=== PATIENT | female | born 1965 | race Caucasian/White ===

== ENCOUNTER 2016-04-13 13:59 | Outpatient (CLI) ==
[2013-09-01 10:28] VITALS: BMI 27.9
--- NOTE | 2016-04-13 15:35 | DI ---
EXAM: Left foot three views HISTORY: Pain COMPARISON: 12/11/2009 FINDINGS: No fracture or dislocation. Mild osteoarthritis of the midfoot. Small plantar and poste rior calcaneal spurs. IMPERSSION: 1. No fracture or dislocation. 2. Small calcaneal spurs. 3. Mild osteoarthritis midfoot.
== END 2016-04-13 14:00 | disposition home or self-care (01) ==
LOC: RAD 13:59
PROVIDERS: ATTEND Physician Assistant
DX: M79.672 Pain in left foot (principal)

== ENCOUNTER 2017-06-20 17:21 | Emergency (ER) ==
[2017-06-20 17:26] VITALS: BP 148/83; TEMP 98.8; BMI 29.1
--- NOTE | 2017-06-20 18:14 | ED.PDOC ---
General ED Provider: Dr. MARY BETH WINKLER Chief Complaint: Hand Pain/Injury Stated Complaint: hand and wrist pain right side Time Seen by Physician: 17:22 Mode of Arrival: Walk-In Information Source: Patient Exam Limitations: No limitations Primary Care Provider: ALINA HANNON Nursing and Triage Documentation Reviewed and Agree: Yes Reviewed sepsis parameters & appropriate labs ordered?: Yes (blunt force trauma today hand /wrist) System Inflammatory Response Syndrome: Not Applicable Sepsis Protocol: For patient's 13 years and over: Temp is 96.8 and below OR 101 and greater Pulse >90 BPM Resp >20/minute Acutely Altered Mental Status Are patient's symptoms suggestive of a new infection, such as: -Pneumonia -Skin, Soft Tissue -Endocarditis -UTI -Bone, Joint Infection -Implantable Device -Acute Abdominal Infection -Wound Infection -Meningitis -Blood Stream Catheter Infection -Unknown System Inflammatory Response Syndrome: Not Applicable Musculoskeletal Complaint Exam - Hand/Wrist Complaint/Exam Location of Pain: Reports: Right, Hand, Wrist Mechanism of Injury: Reports: Trauma Onset/Duration: today Symptoms Are: Still present Onset of Pain: Reports: Hours Initial Severity: Moderate Current Severity: Moderate Location: Reports: Discrete (right hand ) Character: Reports: Aching Alleviating: Reports: Rest, Elevation Aggravating: Reports: Movement Associated Signs and Symptoms: Denies: Swelling, Redness, Bruising, Fever, Weakness, Numbness, Tingling Related History: Reports: Similar episode Related Surgical History: Reports: None Hand/Wrist Findings: Absent: Ecchymosis, Abnormal contour, Rotation, Ligamentous instability, Phalen's Sign, Nail avulsion, Subungal hematoma Compartment Syndrome Risk Factors: Present: Pain Differential Diagnoses: Closed Fracture, Sprain, Strain Review of Systems - Review Of Systems Constitutional: Reports: No symptoms Eyes: Reports: No symptoms Ears, Nose, Mouth, Throat: Reports: No symptoms Respiratory: Reports: No symptoms Cardiac: Reports: No symptoms GI: Reports: No symptoms : Reports: No symptoms Musculoskeletal: Reports: Joint pain (hamd wrist pain) Skin: Reports: No symptoms Neurological: Reports: No symptoms Endocrine: Reports: No symptoms Hematologic/Lymphatic: Reports: No symptoms All Other Systems: Reviewed and Negative Past Medical History - Past Medical History Previously Healthy: Yes Endocrine: Reports: None Cardiovascular: Reports: None Respiratory: Reports: None Hematological: Reports: None Gastrointestinal: Reports: None Genitourinary: Reports: None Neuro/Psych: Reports: None Musculoskeletal: Reports: None Cancer: Reports: None Last Menstrual Period: none - Surgical History General Surgical History: Reports: None - Family History Family History: Reports: None - Social History Smoking Status: Current every day smoker Hx Substance Use: No Alcohol Screening: None Physical Exam - Physical Exam Appearance: Well-appearing, No pain distress, Well-nourished Eyes: QUENTIN, EOMI, Conjunctiva clear ENT: Ears normal, Nose normal, Oropharynx normal Respiratory: Airway patent, Breath sounds clear, Breath sounds equal, Respirations nonlabored Cardiovascular: RRR, Pulses normal, No rub, No murmur GI/: Soft, Nontender, No masses, Bowel sounds normal, No Organomegaly Musculoskeletal: Normal strength, ROM intact, No edema, No calf tenderness Skin: Warm, Dry, Normal color Neurological: Sensation intact, Motor intact, Reflexes intact, Cranial nerves intact, Alert, Oriented Psychiatric: Affect appropriate, Mood appropriate Interpretation - Radiology Interpretation Radiology Interpretation By: ED Physician Radiology Results: Negative Critical Care Note - Critical Care Note Total Time (mins): 0 Course - Course Orders, Labs, Meds: Orders Category Date Time Status HAND, RIGHT 3 VIEWS Stat RADS 06/20/17 17:32 Ordered WRIST, RIGHT 3 VIEWS Stat RADS 06/20/17 17:32 Ordered Vital Signs: Temp Pulse Resp BP Pulse Ox 06/20/17 17:21 98.8 F 78 18 148/83 H 97 Departure - Departure Time of Disposition: 18:13 Disposition: HOME SELF-CARE Discharge Problem: Injury of hand, Hand pain, Wrist pain, right Instructions: Hand Sprain (ED) Condition: Good Pt referred to PMD for follow-up: Yes IPMP verified?: No Additional Instructions: Please call your Family Physician as soon as possible to schedule a follow-up appointment. Allergies/Adverse Reactions: Allergies amoxicillin [Amoxicillin] Adverse Reaction (Verified 06/20/17 17:26) Home Medications: Ambulatory Orders Hydrocodone/Acetaminophen [[place] 5-325 Tablet] 1 each PO Q6HR PRN #12 tablet Nitroglycerin [Nitrostat] 0.4 mg SL PRN PRN 06/20/17
--- NOTE | 2017-06-20 18:14 | DI ---
EXAM: Three views of the right wrist HISTORY: Injury. COMPARISON: None FINDINGS: There is no cortical irregularity or displaced fracture of the right wrist. There is no ly tic or blastic lesion. The joint spaces are unremarkable. The soft tissues are unremarkable. IMPRESSION: No acute abnormality or displaced fracture of the right wrist.
--- NOTE | 2017-06-20 18:15 | DI ---
EXAM: Righthand three view HISTORY: Hand pain post traumatic FINDINGS / IMPRESSION: No bony or articular abnormality is seen. Negative exam.
== END 2017-06-20 18:27 | disposition home or self-care (01) ==
LOC: ED 17:21
DX: S69.91XA Unspecified injury of right wrist, hand and finger(s), initial encounter (principal); W22.8XXA Striking against or struck by other objects, initial encounter; F17.210 Nicotine dependence, cigarettes, uncomplicated
CPT/HCPCS: 99283